=== PATIENT | female | born 1980 | race Caucasian/White ===

== ENCOUNTER 2017-10-10 06:50 | Day surgery (SDC) | payer OTHER, MEDICAID ==
[2017-10-10 08:15] LABS: ADD MAN DIFF? NO
[2017-10-10 08:20] LABS: BASOPHIL # 0.1 10^3/ul (0.0-0.1); BASOPHILS % 1.3 % (0.0-2.0); EOSINOPHILS # 0.1 10^3/ul (0.0-0.5); EOSINOPHILS % 2.6 % (0.0-7.0); HEMATOCRIT 36.1 % (37.0-47.0); HEMOGLOBIN 12.3 g/dl (12.0-16.0); LYMPHOCYTES # 1.4 10^3/ul (0.8-2.9); LYMPHOCYTES % 25.2 % (15.0-51.0); MEAN CORPUSCULAR HEMOGLOBIN 30.2 pg (29.0-33.0); MEAN CORPUSCULAR HGB CONC 34.1 g/dl (32.0-37.0); MEAN CORPUSCULAR VOLUME 88.7 fl (82.0-101.0); MEAN PLATELET VOLUME 9.8 fl (7.4-10.4); MONOCYTE # 0.4 10^3/ul (0.3-0.9); NEUTROPHIL # 3.4 10^3/ul (1.6-7.5); NEUTROPHILS % 62.7 % (39.0-77.0); PLATELET COUNT 292 10^3/UL (140-415); RED BLOOD COUNT 4.07 10^6/ul (4.20-5.40); RED CELL DISTRIBUTION WIDTH 12.5 % (11.5-14.5)
[2017-10-10 08:20] LABS: WHITE BLOOD COUNT 5.5 10^3/ul (4.8-10.8)
[2017-10-10] MEDS ORDERED: BUPIVACAINE 0.25% (MPF) 30 ML INJ (08:40)
[2017-10-10] MEDS ORDERED: LIDOCAINE 1%/EPI 30 ML INJ (08:40)
[2017-10-10] MEDS ORDERED: CEFAZOLIN 1 GM INJ (08:56)
[2017-10-10] MEDS ORDERED: NEOSTIGMINE 3 MG/3 ML SYRINGE (08:56)
[2017-10-10] MEDS ORDERED: PROPOFOL 20 ML (08:56)
[2017-10-10] MEDS ORDERED: ROCURONIUM 50 MG INJ (08:56)
[2017-10-10] MEDS ORDERED: FENTAnyl 50 MCG/ML VIAL (08:56)
[2017-10-10] MEDS ORDERED: ONDANSETRON 4 MG INJ (08:56)
[2017-10-10] MEDS ORDERED: MIDAZOLAM 1 MG/ML 2 ML INJ (08:56)
[2017-10-10] MEDS ORDERED: DEXAMETHASONE 4 MG/ML 1 ML INJ (08:56)
[2017-10-10 08:58] LABS: INR 0.97; PARTIAL THROMBOPLASTIN TIME 27.5 Sec (25.0-35.0)
[2017-10-10] MEDS ORDERED: SUGAMMADEX SODIUM 200 MG/2 ML VIAL IV (09:22)
[2017-10-10] MEDS ORDERED: MIDAZOLAM 1 MG/ML 2 ML INJ IV (09:30)
[2017-10-10] MEDS ORDERED: HYDROmorphONE (0.2 MG/ML) 10ML SYG IV ×3 (09:30)
[2017-10-10] MEDS ORDERED: ONDANSETRON 4 MG INJ IV (09:30)
[2017-10-10] MEDS ORDERED: OXYCODONE/ACETAMINOPHEN (5/325) TAB PO ×2 (09:30)
[2017-10-10] MEDS ORDERED: LABETALOL HCL 20MG INJ IV (09:30)
[2017-10-10] MEDS ORDERED: TRIMETHOBENZAMIDE 100 MG/ML VIAL IM (09:30)
[2017-10-10] MEDS ORDERED: hydrALAzine 20 MG INJ IV (09:30)
[2017-10-10] MEDS ORDERED: EPHEDrine SULFATE 50 MG/5 ML SYG IV (09:30)
[2017-10-10] MEDS ORDERED: DIPHENHYDRAMINE 50 MG INJ IV (09:30)
[2017-10-10] MEDS ORDERED: ALBUTEROL 0.083% (NEB) 2.5 MG/3 ML AMP HHN (09:30)
[2017-10-10] MEDS ORDERED: IPRATROPIUM (NEB) 0.5 MG/2.5 ML AMP HHN (09:30)
[2017-10-10] MEDS ORDERED: FENTAnyl 50 MCG/ML VIAL IV ×2 (09:30)
[2017-10-10] MEDS ORDERED: MEPERIDINE 25 MG INJ IV (09:30)
[2017-10-10] MEDS: FENTAnyl 50 MCG/ML VIAL IV (10:33)
== END 2017-10-10 11:30 | disposition home or self-care (01) ==
LOC: SDS 06:50
DX: Z30.2 Encounter for sterilization (principal)
CPT/HCPCS: 58670; 84703; 85025; 85610; 85730